=== PATIENT | female | born 1980 | race Caucasian/White ===

== ENCOUNTER 2021-09-19 07:55 | Emergency (ER) | payer BC, SELFPAY ==
[~2021-09-19] VITALS: Ht 157.5 cm; Wt 52.2 kg
[2021-09-19 07:55] VITALS: BP_SYST 126
--- NOTE | 2021-09-19 07:55 | NUR ---
BROUGHT TO OUTSIDE TRIAGE TENT, TRIAGED AND AWAITING ER BED AVAILABILITY
--- NOTE | 2021-09-19 08:14 | NUR ---
DR CHAPA OUT TO TRIAGE TENT FOR EVALUATION
[2021-09-19] MEDS ORDERED: PRED20TA PO (09:19)
[2021-09-19] MEDS ORDERED: IBUP-1969 PO (09:19)
--- NOTE | 2021-09-19 10:02 | NUR ---
Patient given written and verbal discharge instructions and verbalizes understanding. ER MD discussed with patient the results and treatment provided. Patient in stable condition. ID arm band removed Rx of IBUPROFEN, PREDNISONE given. Patient educated on pain management and to follow up with PMD. Pain Scale 0/10. Opportunity for questions provided and answered. Medication side effect fact sheet provided.
== END 2021-09-19 10:02 | disposition home or self-care (01) ==
LOC: SED 07:55
DX: U07.1 COVID-19 (principal); J02.8 Acute pharyngitis due to other specified organisms
CPT/HCPCS: 71045; 99283